=== PATIENT | male | born 1965 | race African-American/Black ===

== ENCOUNTER 2017-11-01 07:04 | Day surgery (SDC) | payer MEDICARE, MEDICAID ==
[2017-10-31 12:21] VITALS: BMI 33.9
--- NOTE | 2017-11-01 07:57 | HP ---
DATE OF ADMISSION: 11/01/2017 SHORT STAY HISTORY AND PHYSICAL HISTORY OF PRESENT ILLNESS: This is a 52-year-old male who comes for EGD, because of abdominal pain. The patient had abdominal pain for the last couple of months. The pain is across abdomen. The patient has had a negative abdominal CAT scan. The patient has had a colon polyp removed in the past. The patient comes in for an EGD, because of abdominal pain and also colonoscopy , because of history of colon polyp. ALLERGIES: None. MEDICAL ILLNESSES: 1. Chronic back pain and is on hydrocodone. 2. Hypertension. 3. Hyperlipidemia. 4. Colon polyp. A very large broad-based villous adenoma removed in the past. PHYSICAL EXAMINATION: GENERAL: Appears comfortable, VITAL SIGNS: Pulse is 70, blood pressure 130/80. HEENT: Conjunctivae clear. CARDIOVASCULAR SYSTEM: First and second heart sounds normal. LUNGS: Clear to auscultation. ABDOMEN: Soft to touch. Abdomen is tender over the epigastric area and left upper quadrant. There is no rebound or guarding. No organomegaly or masses. ADMITTING DIAGNOSES: 1. Abdominal pain, negative abdominal CAT scan. 2. Colon polyp. PLAN: EGD and colonoscopy. [facility]
--- NOTE | 2017-11-01 12:25 | OP ---
DATE OF PROCEDURE: 11/01/2017 OPERATIVE PROCEDURE: Esophagogastroduodenoscopy with biopsy. PREOPERATIVE DIAGNOSIS: Abdominal pain. POSTOPERATIVE DIAGNOSES: 1. Ulcer of the distal esophagus, otherwise normal esophageal mucosa. 2. Gastritis. PROCEDURE IN DETAIL: The patient was placed on his left lateral position and was given sedation by A nesthesia Department. A Pentax video gastroscope under direct vision was passed down the oropharynx, past the GE junction, into the stomach and subsequently descending duodenum. The esophageal mucosa appeared normal throughout the esophagus. At the GE junction, the patient was found to have an ulcer ation measuring approximately 1 cm. Otherwise, the esophageal mucosa appeared normal. Upon entering the stomach, the scope was retroflexed to show the fundus and cardia. No lesions in the fundus or c ardia. The patient had a hiatus hernia. In the gastric body, no pathology seen. The gastric antrum mucosa was edematous and erythematous. Biopsies were obtained from the area. In the duodenal bulb and descending duodenum, no pathology seen. The scope was withdrawn and biopsies were obtained from the esophagus. The stomach was decompressed and the scope was removed. DISCHARGE PLANNING: This is a 52-year-old -Spanish male with abdominal pain over the last se veral months. The pain is actually over the left upper quadrant going towards the epigastric area. The patient had abdominal CAT scan, which was negative for any pathology. The patient underwent EGD, which revealed esophageal ulcer and also gastritis. The colonoscopy was basically negative. DISCHARGE RECOMMENDATIONS: 1. Prilosec 40 once a day. 2. The patient was advised to call me if he develops abdominal pain or hematochezia. 3. He is to come back to the clinic in 2 weeks.
--- NOTE | 2017-11-01 12:42 | OP ---
DATE OF PROCEDURE: 11/01/2017 OPERATIVE PROCEDURE: Colonoscopy. PREOPERATIVE DIAGNOSIS: A 52-year-old -[place] male with previous colonoscopy with polypecto my. The patient had a very large, broad based sessile villous adenoma removed a couple of years ago. The patient is undergoing followup colonoscopy. POSTOPERATIVE DIAGNOSIS: Hemorrhoids. Otherwise, normal colonoscopy. The patient did have retained stool in the colon. PROCEDURE IN DETAIL: The patient was placed on his left lateral position and was given sedation by A nesthesia Department. A rectal exam was done before the scope was advanced into the rectum. No lesi ons were felt on rectal exam. A Pentax video colonoscope was introduced into the rectum and advanced all the way into the cecum. The patient did have some retained stool which was washed out. The muc margie appeared normal throughout the colon. The ileocecal area, cecum, ascending colon, no pathology s een. The hepatic flexure, transverse colon, splenic flexure, descending colon, and sigmoid colon, no pathology seen. Rectum showed hemorrhoids.
[2017-11-01] MEDS ORDERED: Propofol 200 MG/20 ML VIAL ONE (15:18)
[2017-11-01] MEDS ORDERED: Lidocaine 1% PF 5 ML VIAL ONE (15:18)
== END 2017-11-01 10:00 | disposition home or self-care (01) ==
LOC: SDC 07:04
PROVIDERS: ATTEND Internal Medicine Gastroenterology
PROC: 0DJD8ZZ Inspection of Lower Intestinal Tract, Via Natural or Artificial Opening Endoscopic (ICD-10-PCS; principal; 2017-11-01)
PROC: 0DB68ZX Excision of Stomach, Via Natural or Artificial Opening Endoscopic, Diagnostic (ICD-10-PCS; 2017-11-01)
DX: R10.9 Unspecified abdominal pain (principal); K44.9 Diaphragmatic hernia without obstruction or gangrene; K64.9 Unspecified hemorrhoids; I10 Essential (primary) hypertension; E78.5 Hyperlipidemia, unspecified; G89.29 Other chronic pain; Z88.5 Allergy status to narcotic agent; Z88.8 Allergy status to other drugs, medicaments and biological substances; Z86.010 Personal history of colon polyps
CPT/HCPCS: 88305; 88312; 88313; J2001; J2704

== ENCOUNTER 2017-12-26 09:26 | Observation (INO) | payer MEDICARE, MEDICAID ==
[2017-12-26 10:38] LABS: PTT 32.2 SEC (22.9-36.1); Prothrombin Time 13.8 SEC (12.0-14.7)
[2017-12-26 10:40] LABS: #Basophils 0.1 thou/uL (0.0-0.2); #Eosinphils 0.1 thou/uL (0.0-0.7); #Lymphocytes 1.7 thou/uL (1.20-3.40); #Monocytes 0.5 thou/uL (0.11-0.59); #Neutrophils 3.8 thou/uL (1.40-6.50); %Basophils 0.9 % (0.0-1.0); %Eosinophils 1.6 % (0.0-10.0); %Monocytes 8.3 % (0.0-10.0); %Neutrophils 62.3 % (42.0-75.0); Hemoglobin 16.4 g/dL (14.0-18.0); Mean Corpuscular HGB CONC 32.5 g/dL (32.0-36.0); Mean Corpuscular Hemoglobin 29.7 pg (27.0-31.0); Mean Corpuscular Volume 91.4 fl (80.0-94.0); Mean Platelet Volume 6.2 fL (7.4-10.4); Platelet Count 297 thou/uL (130-400); RBC Distribution Width 13.4 % (11.5-14.5); Red Blood Cell (RBC) Count 5.51 mill/uL (4.70-6.10); White Blood Cell (WBC) Count 6.1 thou/uL (4.8-10.8)
--- NOTE | 2017-12-26 10:47 | RAD ---
PORTABLE CHEST 1 VIEW: Date: 12/26/17 Time: 1031 hours HISTORY: Chest pain. FINDINGS: The heart size is normal. No focal areas of consolidation, pneumothoraces, or pleural effusions are s een. IMPRESSION: No radiographic evidence of acute cardiopulmonary process. POS: OFF
[2017-12-26 10:55] LABS: ALT (SGPT) 21 U/L (8-55); AST (SGOT) 21 U/L (5-34); Albumin 4.4 g/dL (3.5-5.0); Alkaline Phosphatase 51 U/L (40-150); Anion Gap 13 mmol/L (10-20); BUN (Urea Nitrogen) 20 mg/dL (8.4-25.7); Bilirubin, Total 0.6 mg/dL (0.2-1.2); CK (CPK) 518 U/L (30-200); Calc. Creatinine Clearance 0 mL/min (70-130); Calcium 9.4 mg/dL (7.8-10.44); Carbon Dioxide 26 mmol/L (22-29); Chloride 102 mmol/L (98-107); Estimated GFR-MDRD 55; Globulin 3.3 g/dL (2.4-3.5); Glucose 122 mg/dL (70-105); Protein, Total 7.7 g/dL (6.0-8.3); Sodium 137 mmol/L (136-145)
[2017-12-26 12:01] LABS: CKMB 1.8 ng/mL (0-6.6); Troponin I Less than 0.010 ng/mL (< 0.028)
[2017-12-26 14:03] LABS: Troponin I Less than 0.010 ng/mL (< 0.028)
[2017-12-26 14:05] VITALS: BMI 34.0
[2017-12-26] MEDS ORDERED: hydrALAZINE 20 MG/ML VIAL SLOW IVP PRN (14:18)
[2017-12-26] MEDS ORDERED: Nitroglycerin 0.4 MG TAB (25 Tab Bottle) SL PRN (14:18)
[2017-12-26] MEDS ORDERED: Lorazepam 1 MG TAB PO PRN (14:18)
[2017-12-26] MEDS ORDERED: Senokot 8.6 MG TAB PO PRN (14:18)
[2017-12-26] MEDS ORDERED: Calcium Carbonate 500 MG ChewTAB PO PRN (14:18)
[2017-12-26] MEDS ORDERED: Acetaminophen 325 MG TAB PO PRN (14:18)
[2017-12-26] MEDS ORDERED: Mag-Al 1200 mg/1200 mg/30 ML UDCUP PO PRN (14:18)
[2017-12-26] MEDS ORDERED: Benzonatate 100 MG CAP PO PRN (14:18)
[2017-12-26] MEDS ORDERED: Diabetic Tussin 200 MG/10 ML UDCUP PO PRN (14:18)
[2017-12-26] MEDS ORDERED: Bisacodyl 5 MG TAB PO PRN (14:18)
[2017-12-26] MEDS ORDERED: Ondansetron HCl/PF 4 MG/2 ML Vial IVP PRN (14:18)
[2017-12-26] MEDS ORDERED: cloNIDine 0.1 MG TAB PO PRN (14:18)
[2017-12-26] MEDS ORDERED: Dextrose 50% Abboject 50 ML SYRINGE SLOW IVP PRN (14:20)
[2017-12-26] MEDS ORDERED: HumaLOG 300 UNITS/3 ML VIAL SC PRN ×2 (14:20)
[2017-12-26] MEDS ORDERED: Dextrose 5% in Water 1,000 ML IV PRN (14:20)
[2017-12-26] MEDS ORDERED: Cyclobenzaprine 10 MG TAB PO PRN (14:52)
[2017-12-26] MEDS: Sodium Chloride 0.9% 1,000 ML IV SCH (16:28)
--- NOTE | 2017-12-26 18:06 | RAD ---
LEFT RIBS WITH PA CHEST: Five views obtained. History: Point tenderness, left lower anterior chest. FINDINGS: Widening of the left AC joint is a stable finding. There is no evidence of fracture. No other rib les ion seen. IMPRESSION: No acute finding. POS: HAO
[2017-12-26] MEDS ORDERED: HYDROcodone/Acetaminophen 5/325 mg Tablet PO PRN (20:25)
[2017-12-26] MEDS ORDERED: Atorvastatin Calcium 20 MG TAB PO SCH (21:00)
--- NOTE | 2017-12-26 21:39 | HP ---
DATE OF ADMISSION: 12/26/2017 PRIMARY CARE PHYSICIAN: Victor Manuel Kitchen M.D. CHIEF COMPLAINT: Left-sided rib cage pain and swelling. HISTORY OF PRESENTING ILLNESS: Mr. Bealsey is a very pleasant 52-year-old -[place] male wit h past medical history of hypertension and borderline prediabetes, who presented to the emergency [facility] with the above-mentioned complaints. History is mainly obtained by the patient himself and electro [facility] medical records have been reviewed. Mr. Beasley reports that he has been having this pain for about 6 months now. He does not recall an y inciting factors. He reports that he has been worked up over at [facility] in [place] and actually underwent an EGD recently earlier this year and was found to have a duodenal ulcer for which he is taking Prilosec. This was done by Dr. Stapleton. He reports that this pain did get better, b ut lately has been bothering him more and more. He now is feeling a knot in the left side of the avis st, which is also tender to touch. He has been having some mild shortness of breath with these episo aranza of sharp chest pain, which is radiating down his left arm, starting last night. He denies any ot her recent illnesses. He denies any trauma or any muscle spasms. He has no nausea, vomiting, diarrh ea, abdominal pain, syncope or other symptoms at this time. Upon presentation to the emergency room, he was hemodynamically stable with blood pressure of 147/90, pulse of 79. His initial workup was unremarkable including a 12-lead EKG and cardiac enzymes. Ches t x-ray is negative for any acute cardiopulmonary abnormality. He is now being admitted for further risk stratification and ACS rule out given his multiple cardiac risk factors. He also has strong fam stacia history of stroke and heart disease in his family. Aspirin has been given in the ER. PAST MEDICAL HISTORY: 1. "Prediabetes." He takes metformin. 2. Dyslipidemia. 3. Hypertension. 4. Duodenal ulcer. PAST SURGICAL HISTORY: Back surgery, neck surgery, left shoulder surgery, left elbow surgery and EGD on 10/2017. PSYCHIATRIC HISTORY: No anxiety, no depression. SOCIAL HISTORY: He drinks occasionally, but is a nonsmoker. No drug abuse. FAMILY HISTORY: Significant for stroke in his father who in his 60s and also two of his brother s have had stroke. Mother had heart disease. ALLERGIES: CETIRIZINE, DEMEROL, TRAMADOL, ZYRTEC. CURRENT MEDICATIONS: Simvastatin 20 mg daily, amlodipine 2.5 mg daily, omeprazole 40 mg daily, Gluco phage-XR 1 tablet at bed time, Lipitor 20 mg daily, aspirin 325 mg daily. REVIEW OF SYSTEMS: The following complete review of systems was negative, unless otherwise mentioned in the HPI or below: Constitutional: Weight loss or gain, ability to conduct usual activities. Skin: Rash, itching. Eyes: Double vision, pain. ENT/Mouth: Nose bleeding, neck stiffness, pain, tenderness. Cardiovascular: Palpitations, dyspnea on exertion, orthopnea. Respiratory: Shortness of breath, wheezing, cough, hemoptysis, fever or night sweats. Gastrointestinal: Poor appetite, abdominal pain, heartburn, nausea, vomiting, constipation, or diarr hea. Genitourinary: Urgency, frequency, dysuria, nocturia. Musculoskeletal: Pain, swelling. Neurologic/Psychiatric: Anxiety, depression. Allergy/Immunologic: Skin rash, bleeding tendency. It is negative except for those mentioned in the history and physical. LABORATORY DATA: CBC is unremarkable. PT, PTT, INR are normal. Serum chemistries unremarkable exce pt for creatinine at 1.59, which seems to be rather chronic for this patient. His creatinine was 1.5 7 in 08/2015. Creatine kinase is 518. Cardiac enzymes: Troponin less than 0.010 x3 with normal CK- MB. Lipase is normal. BNP is less than 10. Chest x-ray per my review has no evidence to suggest ac mashpee cardiopulmonary abnormality. A 12-lead EKG shows normal sinus rhythm by my review without any ac [place] ST or T-wave changes. PHYSICAL EXAMINATION: VITAL SIGNS: Most recent vital signs include temperature 98, pulse of 67, respirations 18, saturatin g 97% on room air, blood pressure 136/75. GENERAL: No acute distress, awake, alert, oriented x3. HEENT: Mucous membrane is moist and pink. No oropharyngeal exudate or erythema. Head is normocepha lic, atraumatic. Pupils are equal, reactive to light and accommodation. Extraocular movement intact . NECK: Supple without any lymphadenopathy, JVD or bruit. CHEST: Clear to auscultation without any wheezing, rales or rhonchi. He is definitely tender to pal pation at one point to the left anterior chest at the lower rib cage area with a small palpable knot. His tenderness is exacerbated by deep inspiration and moving his arm up and down. ABDOMEN: Soft, nontender, nondistended with positive bowel sounds. EXTREMITIES: Free of any cyanosis, clubbing, or edema. NEUROLOGIC: Nonfocal. SKIN: Free of any rashes or bruises. Feels warm and dry to touch. PSYCHIATRIC: Normal affect. IMPRESSION AND PLAN: 1. Rib cage pain. I am not sure if this is actually a cardiac pain as the patient has significant t enderness to palpation and elevated CPK, suggesting musculoskeletal pathology. We will obtain a dedi cated rib cage view and add some p.r.n. muscle relaxants. Nevertheless, he is being admitted for ACS rule-out. His cardiac enzymes are negative and we will go ahead and obtain a nuclear medicine stres s test given his multiple risk factors and the fact that he has never had received one. Other than t hat, he is hemodynamically stable and will be monitored on telemetry bed overnight. 2. Acute versus chronic kidney insufficiency. It is unclear if the patient's renal function has wor sened over the course of the last 2 years. There is only one baseline to compare to, which was almos t the same as today's values. At this time, I will hold his metformin, and I have advised him to dis cuss this with his primary care physician for further followups. We will start him on gentle intrave nous fluids and recheck labs in the morning. 3. Rhabdomyolysis. We will start him on IV fluids and recheck in the morning. 4. Hypertension. Resume his home medications of amlodipine at this time. 5. History of dyslipidemia. We will resume his Lipitor. 6. History of duodenal ulcer. Continue proton pump inhibitor. 7. Deep venous thrombosis and gastrointestinal prophylaxis. 8. Code status: FULL CODE. DISPOSITION: Mr. Beasley is currently being admitted under observation status for further workup an d rule out acute coronary syndrome. Continue aspirin full dose. Nuclear medicine stress test as abo ve.
[2017-12-27 05:22] LABS: Anion Gap 10 mmol/L (10-20); BUN (Urea Nitrogen) 16 mg/dL (8.4-25.7); Calc. Creatinine Clearance 102 mL/min (70-130); Calcium 8.5 mg/dL (7.8-10.44); Carbon Dioxide 28 mmol/L (22-29); Chloride 105 mmol/L (98-107); Estimated GFR-MDRD 66; Glucose 85 mg/dL (70-105); Potassium 4.5 mmol/L (3.5-5.1); Sodium 138 mmol/L (136-145)
[2017-12-27] MEDS: Sodium Chloride 0.9% 1,000 ML IV SCH (08:03)
[2017-12-27] MEDS ORDERED: Aspirin 325 MG TAB PO SCH (09:00)
[2017-12-27] MEDS ORDERED: Enoxaparin Sodium 40 MG/0.4 ML SYRINGE SC SCH (09:00)
[2017-12-27] MEDS ORDERED: Amlodipine 5 MG TAB PO SCH (09:00)
[2017-12-27 12:23] VITALS: BP 137/75; TEMP 99.1
--- NOTE | 2017-12-27 13:13 | NM ---
NUCLEAR MEDICINE CARDIAC STRESS PERFUSION STUDY: INDICATIONS: History of chest pain and COPD. RADIOPHARMACEUTICAL: Technetium 99m sestamibi 33 millicuries IV with stress Technetium 99m sestamibi 27 millicuries IV with rest. FINDINGS: When comparing the rest and stress images, no reversible myocardial perfusion defect is evident. The re is left ventricular dilatation on both the stress and rest related images. LVEF is slightly dimin ished at 49%. Wall motion and wall thickening appear within normal limits. IMPRESSION: 1. No scintigraphic evidence of myocardial ischemia. 2. Left ventricular dilatation. 3. Slightly diminished left ventricular ejection fraction of 49%. POS: GARCÍA
--- NOTE | 2017-12-27 13:38 | DIS ---
DATE OF ADMISSION: 12/26/2017 DATE OF DISCHARGE: 12/27/2017 CONDITION AT THE TIME OF DISCHARGE: Stable and improved. DISCHARGE DIAGNOSES: 1. Muscle sprain: 2. Chest pain with acute coronary syndrome ruled out. 3. Hypertension. 4. Dyslipidemia. 5. Diabetes mellitus. 6. Chronic kidney disease, stage 1. 7. Mild rhabdomyolysis. DISCHARGE MEDICATIONS: Remain the same as admission medication as follows, Glucophage XR 1 tablet da stacia, omeprazole 40 mg daily, Lipitor 20 mg daily, aspirin 325 mg daily, and amlodipine 5 mg p.o. tiffanie y. PROCEDURES IN THE HOSPITAL: 1. Chest x-ray, which is unremarkable for any cardiopulmonary abnormality. 2. Left-sided rib cage x-ray, which is negative for any osseous abnormalities. 3. Nuclear medicine stress test, which shows mild left ventricular dilatation without any fixed or r eversible ischemia and estimated EF of 49%. HISTORY OF PRESENTING ILLNESS: Mr. Beasley is a 52-year-old male, who was admitted with a primarily complains of point tenderness and pain in the left anterior chest, ongoing for a few months now. It got worse prior to presentation and he was admitted for "ACS rule out." When I examined the patient , it was quite clear that his symptoms are more consistent with musculoskeletal pain. However, given his multiple risk factors are family history of diabetes and dyslipidemia, he was admitted for ACS r ule out. HOSPITAL COURSE: The patient underwent a rib x-ray for tenderness, which was negative. A stress brandan t was negative for any ACS. Cardiac enzymes were trended and were negative for ACS. EKG did not hav e any changes. He remained hemodynamically throughout his hospitalization. His muscle pain has pers isted despite muscle relaxant pain medication. At this time, he is instructed to follow up with the primary care physician with regards to further management of his musculoskeletal pain including physi azra therapy. He is instructed to try some heating pads on that area. At this time, no clear etiolog y except a muscle sprain is evident for his symptoms. He was seen and examined prior to discharge this morning. PHYSICAL EXAMINATION: VITAL SIGNS: Temperature 99.1, pulse of 72, respirations 16, saturating 96% on room air, and blood p ressure 137/75. GENERAL: No acute distress, awake, alert, and oriented x3. CHEST: Clear to auscultation without any wheezing, rales, or rhonchi. Rhythm is regular without any murmur, rubs, or gallops. LABORATORY DATA: His serum creatinine was 1.59 upon presentation, which went down to 1.36 with IV fl uids. His creatinine kinase was elevated to 518 on the time of presentation. BNP less than 10. Car diac enzymes unremarkable.
[2017-12-27] MEDS ORDERED: Regadenoson 0.4 MG/5 ML SYRINGE ONE (16:35)
== END 2017-12-27 15:34 | disposition home or self-care (01) ==
LOC: ERS 09:26 → 2SW 12:54
PROVIDERS: ADMIT Family Medicine; ATTEND Family Medicine
DX: S23.41XA Sprain of ribs, initial encounter (principal); R07.9 Chest pain, unspecified; I12.9 Hypertensive chronic kidney disease with stage 1 through stage 4 chronic kidney disease, or unspecified chronic kidney disease; E11.22 Type 2 diabetes mellitus with diabetic chronic kidney disease; N18.1 Chronic kidney disease, stage 1; E78.5 Hyperlipidemia, unspecified; M62.82 Rhabdomyolysis; K26.9 Duodenal ulcer, unspecified as acute or chronic, without hemorrhage or perforation; Z88.5 Allergy status to narcotic agent; Z88.8 Allergy status to other drugs, medicaments and biological substances; Z79.82 Long term (current) use of aspirin; Z79.84 Long term (current) use of oral hypoglycemic drugs; Z79.899 Other long term (current) drug therapy; Z98.890 Other specified postprocedural states
CPT/HCPCS: 71045; 71101; 78452; 80048; 80053; 82550; 82553; 82962 ×2; 83690; 83880; 84484 ×2; 85025; 85610; 85730; 93005; 93017; 96360; 96361 ×2; 99285; A9500; G0378; 36415; 36416; J2785

== ENCOUNTER 2019-04-11 16:00 | Outpatient (CLI) | payer MEDICARE, MEDICAID | END 2019-04-11 16:01 | disposition home or self-care (01) | LOC: SLEEPLAB 16:00 | PROVIDERS: ATTEND Internal Medicine Critical Care Medicine | DX: G47.33 Obstructive sleep apnea (adult) (pediatric) (principal); R53.83 Other fatigue | CPT/HCPCS: 95806 ==

== ENCOUNTER 2019-04-19 20:39 | Emergency (ER) | payer MEDICARE, MEDICAID | END 2019-04-19 21:24 | disposition home or self-care (01) | LOC: SCSER 20:39 | DX: L30.9 Dermatitis, unspecified (principal); R73.03 Prediabetes; E78.5 Hyperlipidemia, unspecified; I10 Essential (primary) hypertension; Z79.899 Other long term (current) drug therapy | CPT/HCPCS: 99282 ==

== ENCOUNTER 2019-11-07 18:40 | Emergency (ER) | payer MEDICARE, MEDICAID ==
--- NOTE | 2019-11-07 19:18 | CT ---
CT head noncontrast HISTORY: Fall. Injury. FINDINGS: No comparison. There is no evidence of acute intracranial hemorrhage or infarct. Ill-defined subtle areas of decreas ed density within the periventricular white matter of each cerebral hemisphere are favored to represent chronic ischemic small vessel disease. Left greater than right. Small amount of physiologic calcification at the basal ganglia. There is no mass effect or shift of m idline structures. Calcification in the arterial structures. IMPRESSION: Chronic ischemic small vessel disease. Atherosclerosis. No acute intracranial abnormalities are demonstrated.
--- NOTE | 2019-11-07 19:38 | RAD ---
LUMBAR SPINE THREE VIEWS: 11/07/19 HISTORY: Pain. Fall. FINDINGS: Bilateral transpedicular screws at L4 and L5 without perihardware lucency. L4-L5 disc prosthesis. Str aightening of the lumbar lordosis is presumed to be due to fusion change. Laminectomy defect at L4-L5 is identified. Lumbar spine vertebral body height is maintained and there is no fracture. Visualized bony pelvis and sacrum are unremarkable. IMPRESSION: 1. Uncomplicated lumbar fusion at L4-L5. 2. No fracture. POS: PPP
--- NOTE | 2019-11-07 19:40 | RAD ---
THREE VIEWS LEFT SHOULDER: 11/07/19 HISTORY: Pain. Fall. FINDINGS: There appear to be chronic changes involving the distal left clavicle. There are degenerative changes of the acromioclavicular joint space. Glenohumeral joint space is preserved. No fracture or dislocat ion. The visualized left ribs are unremarkable. IMPRESSION: 1. Chronic changes involving the distal clavicle. 2. Degenerative changes of the acromioclavicular joint space. 3. No acute fracture or dislocation. POS: PPP
[2019-11-07] MEDS ORDERED: Ketorolac Tromethamine 60 MG/2 ML VIAL ONE (19:52)
== END 2019-11-07 20:25 | disposition home or self-care (01) ==
LOC: ERS 18:40
DX: M54.5 Low back pain (principal); M25.512 Pain in left shoulder; R51 Headache; E78.5 Hyperlipidemia, unspecified; E78.00 Pure hypercholesterolemia, unspecified; I10 Essential (primary) hypertension; Z79.899 Other long term (current) drug therapy; W01.0XXA Fall on same level from slipping, tripping and stumbling without subsequent striking against object, initial encounter
CPT/HCPCS: 70450; 72100; 96372; J1885

== ENCOUNTER 2020-03-26 11:10 | Emergency (ER) | payer MEDICARE, MEDICAID ==
[2020-03-26 11:43] LABS: #Basophils 0.1 thou/uL (0.0-0.2); #Eosinphils 0.4 thou/uL (0.0-0.7); #Lymphocytes 2.1 thou/uL (1.20-3.40); #Monocytes 0.4 thou/uL (0.11-0.59); #Neutrophils 3.4 thou/uL (1.40-6.50); %Eosinophils 5.7 % (0.0-10.0); %Lymphocytes 33.3 % (21.0-51.0); %Monocytes 6.4 % (0.0-10.0); %Neutrophils 53.5 % (42.0-75.0); Hemoglobin 13.9 g/dL (14.0-18.0); Mean Corpuscular HGB CONC 33.9 g/dL (32.0-36.0); Mean Corpuscular Hemoglobin 30.9 pg (27.0-31.0); Mean Platelet Volume 7.2 fL (7.4-10.4); Platelet Count 245 thou/uL (130-400); RBC Distribution Width 12.4 % (11.5-14.5); Red Blood Cell (RBC) Count 4.52 mill/uL (4.70-6.10); White Blood Cell (WBC) Count 6.4 thou/uL (4.8-10.8)
--- NOTE | 2020-03-26 11:48 | RAD ---
RADIOGRAPH CHEST 1 VIEW: DATE: 03/26/2020 HISTORY: 54-year-old male with chest pain FINDINGS: There are no airspace densities, pulmonary edema, pneumothorax, or cardiomegaly. The lateral costophr enic angles are sharp. IMPRESSION: No acute cardiopulmonary findings.
[2020-03-26 12:14] LABS: ALT (SGPT) 24 U/L (8-55); AST (SGOT) 22 U/L (5-34); Albumin 4.4 g/dL (3.5-5.0); Alkaline Phosphatase 54 U/L (40-110); Anion Gap 12 mmol/L (10-20); BUN (Urea Nitrogen) 16 mg/dL (8.4-25.7); Bilirubin, Total 0.4 mg/dL (0.2-1.2); Calc. Creatinine Clearance 0 mL/min (70-130); Calcium 9.2 mg/dL (7.8-10.44); Carbon Dioxide 27 mmol/L (22-29); Chloride 104 mmol/L (98-107); Estimated GFR-MDRD 67; Globulin 3.1 g/dL (2.4-3.5); Glucose 114 mg/dL (70-105); Lipase 25 U/L (8-78); Potassium 3.8 mmol/L (3.5-5.1); Protein, Total 7.5 g/dL (6.0-8.3); Sodium 139 mmol/L (136-145)
[2020-03-26] MEDS ORDERED: Ketorolac Tromethamine 30 MG/ML VIAL ONE (12:32)
[2020-03-26 13:50] LABS: CK (CPK) 386 U/L (30-200)
--- NOTE | 2020-03-29 13:58 | EKG ---
Test Reason : Blood Pressure : / mmHG Vent. Rate : 067 BPM Atrial Rate : 067 BPM P-R Int : 174 ms QRS Dur : 084 ms QT Int : 392 ms P-R-T Axes : 052 042 026 degrees QTc Int : 414 ms Normal sinus rhythm Normal ECG Confirmed by TEE COBB MD ([id number]), business editor LAM CARREON ([id number]) on 03/29/2020 1:58:06 PM Referred By: Confirmed By:TEE COBB MD
== END 2020-03-26 14:55 | disposition home or self-care (01) ==
LOC: ERS 11:10
DX: S16.1XXA Strain of muscle, fascia and tendon at neck level, initial encounter (principal); M25.512 Pain in left shoulder; I10 Essential (primary) hypertension; R73.03 Prediabetes; E78.5 Hyperlipidemia, unspecified; E78.00 Pure hypercholesterolemia, unspecified; Z79.84 Long term (current) use of oral hypoglycemic drugs; X58.XXXA Exposure to other specified factors, initial encounter
CPT/HCPCS: 71045; 80053; 82550; 83690; 84484; 85025; 93005; 94760; 96374; J1885

== ENCOUNTER 2022-08-31 10:41 | Emergency (ER) | payer OTHER, MEDICARE, MEDICAID ==
[2022-08-31] MEDS ORDERED: Ketorolac Tromethamine 30 MG/ML VIAL ONE (12:14)
[2022-08-31] MEDS ORDERED: Orphenadrine Citrate 60 MG/2 ML VIAL ONE (12:14)
== END 2022-08-31 13:55 | disposition home or self-care (01) ==
LOC: ERS 10:41
DX: S13.4XXA Sprain of ligaments of cervical spine, initial encounter (principal); S33.5XXA Sprain of ligaments of lumbar spine, initial encounter; I10 Essential (primary) hypertension; E78.00 Pure hypercholesterolemia, unspecified; V43.52XA Car driver injured in collision with other type car in traffic accident, initial encounter; Z79.899 Other long term (current) drug therapy
CPT/HCPCS: 72125; 72128; 72131; 96372; J1885; J2360

== ENCOUNTER 2023-05-13 08:39 | Day surgery (SDC) | payer OTHER, MEDICAID ==
[2023-05-12 12:41] VITALS: BMI 29.7
[~2023-05-13 08:39] MED LIST: EPINEPHrine 1 MG/ML AMP ONE; Midazolam HCl 2 mg/2 ml Vial ONE; PHENYLEPHRINE-NS 100 MCG/ML 10 ML SYRINGE ONE; Phenylephrine 10 MG/ML VIAL ONE; fentaNYL 50 mcg/mL 1 mL Vial ONE
[2023-05-13] MEDS ORDERED: fentaNYL 50 mcg/mL 1 mL Vial ONE (09:03)
[2023-05-13] MEDS ORDERED: Ropivacaine 0.5% HCl/PF (150 MG/30 ML VIAL) ONE (09:03)
[2023-05-13] MEDS ORDERED: Midazolam HCl 2 mg/2 ml Vial ONE (09:03)
[2023-05-13] MEDS ORDERED: Rocuronium Bromide 10 MG/ML (10ML VIAL) ONE (09:36)
[2023-05-13] MEDS ORDERED: PHENYLEPHRINE-NS 100 MCG/ML 10 ML SYRINGE ONE (09:36)
[2023-05-13] MEDS ORDERED: Lidocaine 1% PF 5 ML VIAL ONE (09:36)
[2023-05-13] MEDS ORDERED: Dexamethasone 20 MG/5 ML VIAL ONE (09:36)
[2023-05-13] MEDS ORDERED: PROPOFOL 200 MG/20 ML VIAL ONE (09:36)
[2023-05-13] MEDS ORDERED: Ondansetron PF 4 MG/2 ML Vial ONE (09:36)
[2023-05-13] MEDS ORDERED: SUGAMMADEX SODIUM 200 MG/2 ML VIAL ONE (10:22)
[2023-05-13] MEDS ORDERED: Ketorolac Tromethamine 30 MG/ML VIAL ONE (11:12)
== END 2023-05-13 12:55 | disposition home or self-care (01) ==
LOC: SDC 08:39
PROVIDERS: ATTEND Orthopaedic Surgery Sports Medicine
PROC: 0LS34ZZ Reposition Right Upper Arm Tendon, Percutaneous Endoscopic Approach (ICD-10-PCS; principal; 2023-05-13)
DX: M75.121 Complete rotator cuff tear or rupture of right shoulder, not specified as traumatic (principal); S46.091A Other injury of muscle(s) and tendon(s) of the rotator cuff of right shoulder, initial encounter; E11.9 Type 2 diabetes mellitus without complications; M75.21 Bicipital tendinitis, right shoulder; M67.813 Other specified disorders of tendon, right shoulder; M19.011 Primary osteoarthritis, right shoulder; I10 Essential (primary) hypertension; Z88.8 Allergy status to other drugs, medicaments and biological substances
CPT/HCPCS: 29824; 29826; 29827; 29828; C1713 ×2; J3010; J0171; J1100; J1885; J2250; J2370; J2405; J2704; J2795

== ENCOUNTER 2024-05-10 08:12 | Outpatient (CLI) | payer MEDICARE, MEDICAID | END 2024-05-10 08:13 | disposition home or self-care (01) | LOC: BICMRI 08:12 | PROVIDERS: ATTEND Family Medicine | DX: M54.2 Cervicalgia (principal); G89.29 Other chronic pain; R20.2 Paresthesia of skin; R25.2 Cramp and spasm; M47.812 Spondylosis without myelopathy or radiculopathy, cervical region; M48.02 Spinal stenosis, cervical region; Z98.890 Other specified postprocedural states | CPT/HCPCS: 72141 ==

== ENCOUNTER 2024-07-13 08:42 | Outpatient (CLI) | payer MEDICARE, MEDICAID | END 2024-07-13 08:43 | disposition home or self-care (01) | LOC: BICRAD 08:42 | PROVIDERS: ATTEND Family Medicine | DX: Z01.818 Encounter for other preprocedural examination (principal); Z01.812 Encounter for preprocedural laboratory examination | CPT/HCPCS: 36415; 71046; 80053; 85025 ==

== ENCOUNTER 2024-08-01 07:13 | Outpatient (CLI) | payer MEDICARE, MEDICAID | END 2024-08-01 07:14 | disposition home or self-care (01) | LOC: BICULT 07:13 | PROVIDERS: ATTEND Nurse Practitioner Family | DX: N50.811 Right testicular pain (principal) | CPT/HCPCS: 76870; 93976 ==

== ENCOUNTER 2024-10-22 08:06 | Outpatient (CLI) | payer MEDICARE, MEDICAID | END 2024-10-22 08:07 | disposition home or self-care (01) | LOC: CT 08:06 | PROVIDERS: ATTEND Family Medicine | DX: R10.31 Right lower quadrant pain (principal) | CPT/HCPCS: 36415; 74178; 82565 ==

== ENCOUNTER 2025-05-21 07:37 | Outpatient (CLI) | payer OTHER, MEDICAID | END 2025-05-21 07:38 | disposition home or self-care (01) | LOC: BICULT 07:37 | PROVIDERS: ATTEND Family Medicine | DX: I65.23 Occlusion and stenosis of bilateral carotid arteries (principal); I77.9 Disorder of arteries and arterioles, unspecified | CPT/HCPCS: 93880 ==